=== PATIENT | female | born 1990 ===

== ENCOUNTER 2018-04-22 22:36 | Emergency (ER) | payer SELFPAY ==
[2018-04-22 22:43] VITALS: O2SAT 98
--- NOTE | 2018-04-22 22:47 | C.PDOC ---
History Of Present Illness 28 year old female presents to the ED c/o worsening mid epigastric pain that started today at approximately 21:00- 22:00. Patient rates her pain at a 4/10, speaking in full sentences. Patient's LMP was on 04/06/18. Patient denies nausea , vomit, diarrhea, fever, chills, back pain. Time Seen by Provider: 04/22/18 22:47 Chief Complaint (Nursing): Abdominal Pain History Per: Patient History/Exam Limitations: no limitations Onset/Duration Of Symptoms: Hrs Current Symptoms Are (Timing): Still Present Severity: Mild Pain Scale Rating Of: 4 Location Of Pain/Discomfort: Epigastric Radiation Of Pain To:: None Quality Of Discomfort: "Pain" Associated Symptoms: denies: Nausea, Diarrhea Exacerbating Factors: None Alleviating Factors: None Recent travel outside of the [place]: No Additional History Per: Patient Abnormal Vaginal Bleeding: No Last Menstral Period: 04/06/18 Past Medical History Reviewed: Historical Data, Nursing Documentation, Vital Signs Vital Signs: Last Vital Signs Temp 97.9 F 04/22/18 22:40 Pulse 92 H 04/22/18 22:40 Resp 16 04/22/18 22:40 BP 105/71 04/22/18 22:40 Pulse Ox 98 04/22/18 23:32 - Medical History PMH: No Chronic Diseases Surgical History: No Surg Hx Family History: States: Unknown Family Hx - Social History Hx Alcohol Use: No Hx Substance Use: No Review Of Systems Constitutional: Negative for: Fever, Chills Cardiovascular: Negative for: Chest Pain Respiratory: Negative for: Shortness of Breath Gastrointestinal: Positive for: Abdominal Pain. Negative for: Nausea, Vomiting , Diarrhea Genitourinary: Negative for: Dysuria, Pelvic Pain Musculoskeletal: Negative for: Back Pain Skin: Negative for: Rash Neurological: Negative for: Weakness Psych: Positive for: Anxiety Physical Exam - Physical Exam Appears: Non-toxic, No Acute Distress Skin: Warm, Dry Head: Normacephalic Eye(s): bilateral: Normal Inspection Oral Mucosa: Moist Chest: Symmetrical Cardiovascular: Rhythm Regular Respiratory: No Rales, No Rhonchi, No Wheezing Gastrointestinal/Abdominal: Soft, Tenderness (mid epigastric), No Distention, No Guarding, No Rebound Back: Normal Inspection Extremity: Bilateral: Atraumatic Neurological/Psych: Oriented x3, Normal Speech Gait: Steady ED Course And Treatment O2 Sat by Pulse Oximetry: 98 (ON RA) Pulse Ox Interpretation: Normal Progress Note: Plan: - Labs. - IV fluids. - UA. Patient refuses any blood work, iv, Iv antibiotics. Explained at length the need for full evaluation, but pt refuses. Understands the risks as I've explained at [facility], including worsening condition, permanent disability and . Patient signed ama form and was again encouraged to stay or retun anytime Against Medical Advice - AMA Patient Left Against Medical Advice: The patient declines admission to the hospital and wishes to leave the Emergency Department. This action is against my medical advice. This decision was made with informed refusal. The patient was told that admission to the hospital is necessary. Explanation of the reasons why were discussed. The risks of leaving were explained to the patient and include, but are not limited to, worsening of known or currently unknown conditions, permanent disability and from undiagnosed or untreated conditions. The patient has the capacity to make this informed decision and understands my explanation of the current medical problem and risks of leaving. The patient voluntarily accepts these risks and signed an AMA form documenting our conversation. The patient was given the opportunity to ask questions and reconsider. The patient was encouraged to return to the Emergency Department at any time for further care. Disposition Counseled Patient/Family Regarding: Studies Performed, Diagnosis, Need For Followup, Rx Given - Disposition Referrals: [facility] [Outside] Disposition: AGAINST MEDICAL ADVICE Disposition Time: 22:47 Condition: FAIR Additional Instructions: Please return if symptoms recur Prescriptions: Nitrofurantoin Macrocrystals [Macrobid] 1 cap PO BID #14 cap Instructions: Urinary Tract Infection, Adult (DC) Forms: [employer] (Italian) - Clinical Impression Clinical Impression: Abdominal pain - Scribe Statement The provider has reviewed the documentation as recorded by the Scribe Leroy De Paz All medical record entries made by the Scribe were at my direction and personally dictated by me. I have reviewed the chart and agree that the record accurately reflects my personal performance of the history, physical exam, medical decision making, and the department course for this patient. I have also personally directed, reviewed, and agree with the discharge instructions and disposition.
[2018-04-22 23:21] LABS: HCG,QUALITATIVE URINE NEGATIVE (NEGATIVE)
[2018-04-22] MEDS ORDERED: Sodium Chloride 0.9% 1,000 ML IV ONE (23:21)
[2018-04-22 23:25] LABS: SQUAMOUS EPITHIAL 22 /hpf (0-5); URINE BACTERIA MOD (<OCC); URINE BILIRUBIN NEGATIVE (NEGATIVE); URINE BLOOD 1+ (NEGATIVE); URINE CLARITY Hazy (Clear); URINE GLUCOSE (UA) NORMAL (Normal); URINE LEUKOCYTE ESTERASE 3+ Leu/uL (Negative); URINE PROTEIN NEGATIVE (NEGATIVE); URINE UROBILINOGEN NORMAL mg/dL (0.2-1.0)
[2018-04-22 23:26] LABS: URINE COLOR YELLOW (YELLOW)
[2018-04-22] MEDS ORDERED: Sodium Chloride 0.9% 0 ML ONE (23:29)
[2018-04-22] MEDS ORDERED: Piperacillin/Tazobact 3.375 gm 100 ML IVPB STA (23:31)
[2018-04-22 23:48] VITALS: BP 128/70; PULSE 78; RESP 20; TEMP 98.2
== END 2018-04-22 23:44 | disposition left against medical advice (07) ==
LOC: C.ER 22:36
DX: R10.13 Epigastric pain (principal)